=== PATIENT | female | born 1955 | race Caucasian/White ===

== ENCOUNTER 2018-04-08 07:23 | Day surgery (SDC) | payer BC, OTHER ==
[~2018-04-08 07:23] MED LIST: Lactated Ringers 1,000 ML IV SCH; Sodium Chloride 0.9% 10 ML Syringe FLUSH PRN; Sodium Chloride 0.9% 2.5 ML Syringe FLUSH PRN
--- NOTE | 2018-04-08 07:50 | PCM.PREANE ---
Preanesthetic Assessment - Anesthesia/Transfusion/Family Hx Anesthesia History: Prior Anesthesia Without Reaction Family History of Anesthesia Reaction: No Transfusion History: No Prior Transfusion(s) Intubation History: Unknown - Review of Systems General: No Symptoms Pulmonary: No Symptoms Cardiovascular: No Symptoms Gastrointestinal: No Symptoms Neurological: No Symptoms Other: Reports: None - Physical Assessment Height: 1.6 m Weight: 90.265 kg ASA Class: 2 Mental Status: Alert & Oriented x3 Airway Class: Mallampati = 2 Dentition: Reports: Normal Dentition Thyro-Mental Finger Breadths: 2 Mouth Opening Finger Breadths: 2 ROM/Head Extension: Full Lungs: Clear to Auscultation, Normal Respiratory Effort Cardiovascular: Regular Rate, Regular Rhythm - Allergies Allergies/Adverse Reactions: Allergies Allergy/AdvReac Type Severity Reaction Status Date / Time No Known Allergies Allergy Verified 04/03/18 12:22 - Blood Blood Available: No - Anesthesia Plan Pre-Op Medication Ordered: None - Acknowledgements Anesthesia Type Planned: MAC Pt an Appropriate Candidate for the Planned Anesthesia: Yes Alternatives and Risks of Anesthesia Discussed w Pt/Guardian: Yes Pt/Guardian Understands and Agrees with Anesthesia Plan: Yes PreAnesthesia Questionnaire HEENT History: Reports: Other (See Below) Other HEENT History: wears glasses Cardiovascular History: Reports: None Respiratory History: Reports: Other (See Below) Other Respiratory History: "may have sleep apnea but have not been tested" Gastrointestinal History: Reports: Colon Polyp, Other (See Below) Other Gastrointestinal History: occasional heartburn Genitourinary History: Reports: None [employer] History: Reports: Psychiatric History: Reports: Anxiety, Depression Endocrine/Metabolic History: Reports: Obesity/BMI 30+ Oncologic (Cancer) History: Reports: None - Past Surgical History Head Surgeries/Procedures: Reports: None Cardiovascular Surgical History: Reports: Other (See Below) Other Cardiovascular Surgeries/Procedures: hx varicose vein ligation GI Surgical History: Reports: Colonoscopy (x3) Female Surgical History: Reports: Breast Biopsy, Tubal Ligation, Other (See Below) Other Female Surgeries/Procedures: laparoscopy with rt S&O, breast lumpectomy Oncologic Surgical History: Reports: Biopsy of Breast - SUBSTANCE USE Smoking Status *Q: Never Smoker Recreational Drug Use History: No - HOME MEDS Home Medications: Home Meds Calcium Carbonate/Vitamin D3 [Calcium 600 + Vit D Tablet] 1 tab PO DAILY [History] Fexofenadine HCl [[place] Allergy] 1 tab PO DAILY 04/03/18 [History] Venlafaxine HCl [Venlafaxine ER] 1 tab PO DAILY 04/03/18 [History] - CURRENT (IN HOUSE) MEDS Current Meds: Current Medications Lactated Ringer's (Ringers, Lactated) 1,000 mls @ 125 mls/hr IV ASDIRECTED NELDA Sodium Chloride (Saline Flush) 10 ml FLUSH ASDIRECTED PRN PRN Reason: Keep Vein Open Sodium Chloride (Saline Flush) 2.5 ml FLUSH ASDIRECTED PRN PRN Reason: Keep Vein Open Sodium Chloride (Saline Flush) 10 ml FLUSH ASDIRECTED PRN PRN Reason: Keep Vein Open Sodium Chloride (Saline Flush) 2.5 ml FLUSH ASDIRECTED PRN PRN Reason: Keep Vein Open
[2018-04-08] MEDS ORDERED: Propofol 200 MG/20 ML SDV ONE ×3 (08:40)
--- NOTE | 2018-04-08 09:24 | PCM.OPNOTE ---
- General Post-Op/Procedure Note Date of Surgery/Procedure: 04/08/18 Operative Procedure(s): Colonoscopy Findings: Transverse colon polyps x 2, rectal polyp, sigmoid colon polyp Pre Op Diagnosis: History of colon polyps Post-Op Diagnosis: Transverse colon polyps x 2, rectal polyp, sigmoid colon polyp Anesthesia Technique: [facility] [place] Surgeon: Mirela Em Condition: Good
--- NOTE | 2018-04-08 09:56 | PCM48HPAN ---
Post Anesthesia Note - EVALUATION WITHIN 48HRS OF ANESTHETIC Vital Signs in Normal Range: Yes Patient Participated in Evaluation: Yes Respiratory Function Stable: Yes Airway Patent: Yes Cardiovascular Function Stable: Yes Hydration Status Stable: Yes Pain Control Satisfactory: Yes Nausea and Vomiting Control Satisfactory: Yes Mental Status Recovered: Yes Resp Rate: 18 - COMMENTS/OBSERVATIONS Free Text/Narrative:: no anesthesia problemsno anesthesia problems
--- NOTE | 2018-04-08 15:51 | OR ---
SURGEON: MIRELA EM MD DATE OF PROCEDURE: 04/08/2018 PREOPERATIVE DIAGNOSIS: History of colon polyps. POSTOPERATIVE DIAGNOSES: 1. Rectal polyp. 2. Sigmoid colon polyp. 3. Transverse colon polyps x2. PROCEDURE PERFORMED: Screening colonoscopy. ENDOSCOPIST: Mirela Em MD ANESTHESIA: MAC. INSTRUMENT USED: Olympus colonoscope. EXTENT OF EXAM: To the cecum. PREPARATION: Good. LIMITATIONS: None. INDICATION FOR EXAMINATION: The patient is a 63-year-old female who presents for a repeat colonoscopy. She has had several in the past and always had polyps removed. The patient and I discussed the need for a repeat colonoscopy. We discussed the procedure as well as expected perioperative course. We discussed the risks that including bleeding, infection, or damage to surrounding structures including perforation. The patient verbalized understanding and wishes to proceed. PROCEDURE IN DETAIL: The patient was brought into the endoscopy suite and placed in a left lateral decubitus position. A time-out was completed verifying the patient's name, age, date of , allergies, and procedure to be performed. Monitored anesthesia care was induced and continuous oxygen was provided via face mask throughout the procedure. After adequate sedation was achieved, a digital rectal exam was performed. This exam was within normal limits. A well lubricated colonoscope was inserted into the rectum and advanced under direct visualization to the level of the cecum. The cecum was identified by both visual and anatomic landmarks. A photograph was taken at the cecal cap. The scope was then fully withdrawn while examining the color, texture, anatomy, and integrity of the mucosa from the cecum to the anal canal. The patient was found to have 2 proximal transverse colon polyps. These were 2 to 3 mm in size. They were both removed using cold biopsy forceps. The patient had a 1 to 2 mm polyp within the sigmoid colon. This was removed in a similar fashion. The scope was brought into the rectum and the patient was noted to have a 3 to 4 mm polyp there. This was removed in piecemeal fashion using a cold biopsy forceps. The patient had diffuse diverticulosis throughout the colon, but most of her diverticula were located within the distal half. The scope was then retroflexed within the rectum to allow visualization of the anal canal opening. This appeared normal and a photograph was taken. The scope was then straightened out and removed from the patient. The cecum to anus time was 14 minutes. The patient tolerated the procedure well, was taken to PACU in stable condition. ENDOSCOPIC DIAGNOSES: 1. Rectal colon polyp. 2. Sigmoid colon polyp. 3. Transverse colon polyps x2. RECOMMENDATIONS: Follow up in clinic in 2 weeks. NICOLE NUNEZ /[id number]
== END 2018-04-08 09:55 | disposition home or self-care (01) ==
LOC: MW.SDS 07:23
PROVIDERS: ATTEND Surgery
DX: Z12.11 Encounter for screening for malignant neoplasm of colon (principal); D12.3 Benign neoplasm of transverse colon; D12.5 Benign neoplasm of sigmoid colon; D12.8 Benign neoplasm of rectum; K57.30 Diverticulosis of large intestine without perforation or abscess without bleeding; E66.9 Obesity, unspecified; F41.9 Anxiety disorder, unspecified; F32.9 Major depressive disorder, single episode, unspecified; Z86.010 Personal history of colon polyps; Z79.899 Other long term (current) drug therapy; Z80.0 Family history of malignant neoplasm of digestive organs
CPT/HCPCS: 45380; J7120; 88305; J2704

== ENCOUNTER 2022-12-25 08:10 | Day surgery (SDC) | payer MEDICARE, OTHER ==
[~2022-12-25 08:10] MED LIST changes: +Sodium Chloride 0.9% 20 ML SDV IV PRN
[2022-12-25] MEDS ORDERED: Propofol 200 MG/20 ML SDV ONE (08:41)
[2022-12-25] MEDS ORDERED: fentaNYL 100 MCG/2 ML SDV ONE (08:41)
== END 2022-12-25 10:10 | disposition home or self-care (01) ==
LOC: MW.SDS 08:10
PROVIDERS: ATTEND Surgery
DX: Z12.11 Encounter for screening for malignant neoplasm of colon (principal); D12.0 Benign neoplasm of cecum; K57.30 Diverticulosis of large intestine without perforation or abscess without bleeding; M81.0 Age-related osteoporosis without current pathological fracture; M85.80 Other specified disorders of bone density and structure, unspecified site; I10 Essential (primary) hypertension; E78.5 Hyperlipidemia, unspecified; Z86.010 Personal history of colon polyps; Z80.0 Family history of malignant neoplasm of digestive organs; Z88.0 Allergy status to penicillin
CPT/HCPCS: 45385; J2704; J3010; J7120; 00811; 88305